=== PATIENT | female | born 2005 | race Caucasian/White ===

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

== ENCOUNTER 2023-01-15 18:29 | Emergency (ER) | payer OTHER ==
[2023-01-15 18:40] VITALS: BP 129/79
[2023-01-15] MEDS ORDERED: IBUPROFEN 600 MG TABLET PO STA (18:44)
--- NOTE | 2023-01-15 18:49 | ED Physician Documentation ---
History of Present Illness - Stated complaint Stated Complaint: R PINKY INJ - Chief complaint Chief Complaint: Trauma Ext - Additonal information Additional information: 17-year-old female presents to the emergency department for evaluation of acute right hand pain. She got upset when her make-up would not cooperate the way she wanted it to and punched a wall around 1 PM. She is right-hand dominant. No history of previous injury. Review of Systems Musculoskeletal: reports: Extremity pain PD PAST MEDICAL HISTORY - Past Medical History Cardiovascular: None Respiratory: None Endocrine/Autoimmune: None Psych: Anxiety - Past Surgical History Past Surgical History: No - Present Medications Home Medications: Ambulatory Orders Medication Instructions Recorded Confirmed Norelgestromin/Ethin.estradiol 1 each TD OAW 01/15/23 01/15/23 [Zafemy 150-35 Mcg/Day Patch] Venlafaxine [Effexor] 37.5 mg PO DAILY 01/15/23 01/15/23 clonazePAM [Clonazepam] 0.25 mg PO DAILY PRN 01/15/23 01/15/23 - Allergies Allergies/Adverse Reactions: Allergies Allergy/AdvReac Type Severity Reaction Status Date / Time No Known Drug Allergies Allergy Verified 01/15/23 18:52 - Social History Does the pt smoke?: No Smoking Status: Never smoker Does the pt drink ETOH?: No Does the pt have substance abuse?: Yes - Immunizations Immunizations are current?: Yes - POLST Patient has POLST: No PD ED PE EXPANDED - Extremities Extremities: Right hand (Pain swelling and ecchymosis distal right fifth metacarpal. Preserved flexion extension at MCP joint though painful. No pain in the fingers hand or wrist otherwise. Neurovascularly intact. 2+ radial pulse) Results - Vitals Vitals: Vital Signs - 24 hr 01/15/23 18:35 Temperature 36.6 C Heart Rate 82 Respiratory 16 Rate Blood Pressure 129/79 O2 Saturation 99 Oxygen O2 Source Room air - Rads (name of study) right hand Relevant Findings:: Final report received (No fifth metacarpal fracture seen) PD Medical Decision Making - ED course Complexity details: reviewed results, re-evaluated patient, d/w patient ED course: 17-year-old female presents emergency department for evaluation of acute right hand pain after she punched a wall in frustration over make-up. She does have tenderness just proximal to the MCP of the small finger. Mild ecchymosis but no deformity. Normal movement. And x-ray of the hand is interpreted by the radiologist as negative for acute fracture. I discussed with the patient and her mom that given the otherwise benign exam this likely represents a contusion. Discussed Tylenol and ibuprofen for analgesia. Usual appropriate emergent return precautions discussed Departure - Departure Disposition: 01 Home, Self Care Clinical Impression: Contusion of right hand Condition: Stable Record reviewed to determine appropriate education?: Yes Instructions: ED Contusion Hand Ch Comments: [place] the x-ray of the hand does not show fracture. It is most likely that you have bruised or contused the hand and bone. In general you can ice the hand. Take ibuprofen or Tylenol for discomfort. I do expect this to be getting better over the next week or so. If you find that is not improving please return to the emergency department.
--- NOTE | 2023-01-15 19:16 | XRAY Report ---
PROCEDURE: Hand 3 View RT INDICATIONS: ? 5th MCP fx TECHNIQUE: 3 views of the hand(s) acquired. COMPARISON: Correlation is made with the overlapping portions of wrist plain films, 923 and 16 FINDINGS: Bones: In this patient with this given history, scrutiny is given to the fifth metacarpal. No fractu res are seen at this site. No dislocations. No fractures or dislocations are seen elsewhere. No suspicious bony lesions. Soft tissues: No suspicious soft tissue calcifications or masses. IMPRESSION: No fifth metacarpal fracture is seen. Reviewed by: Jah Loya MD on 01/15/2023 6:15 PM MADELYN Approved by: Jah Loya MD on 01/15/2023 6:15 PM AKALYSA Station ID: [id number]
== END 2023-01-15 19:36 | disposition home or self-care (01) ==
LOC: ED 18:29
DX: S60.221A Contusion of right hand, initial encounter (principal); W22.01XA Walked into wall, initial encounter; Y93.E8 Activity, other personal hygiene
CPT/HCPCS: 73130; 99283; A9270